=== PATIENT | female | born 1985 | race Caucasian/White ===

== ENCOUNTER 2020-04-01 07:37 | Outpatient (CLI) | payer OTHER ==
--- NOTE | 2020-04-01 08:34 | CT ---
CT ABDOMEN AND PELVIS WITH AND WITHOUT IV CONTRAST 04/01/2020 CLINICAL INFORMATION: Urinary tract infection. History of HPV. COMPARISON: None. Technique: Multiple contiguous axial CT images are obtained through the abdomen and pelvis with IV contrast. Cor onal reformatted images are provided. FINDINGS: Lower Chest: Lung bases are clear. Vessels: Abdominal aorta is normal in caliber. Abdomen: Portal vein:Patent Gallbladder: Within normal limits for CT imaging. Liver: within normal limits. Spleen: within normal limits. Pancreas: within normal limits. Adrenals: within normal limits. Kidneys: Normal in appearance bilaterally. No renal mass is visualized. No renal or ureteral calculi are seen bilaterally, and there is no evidence of hydronephrosis. Delayed images demonstrate no definitive filling defect within the renal collecting systems or visualized opacified ureters. Bowel: Normal caliber. Appendix: The appendix is visualized and normal in caliber. Peritoneum: Trace amount of free fluid in the pelvis probably physiologic. No fluid collection or lym phadenopathy seen in the abdomen or pelvis. Mesentery and Retroperitoneum: No enlarged mesenteric or retroperitoneal lymph nodes. Abdominal Wall: within normal limits. Pelvis: Reproductive Organs: No pelvic masses. Bladder: Partially distended and normal in appearance. Bones: within normal limits. IMPRESSION: 1. No acute findings are seen in the abdomen or pelvis. 2. No renal or ureteral calculi are seen bilaterally, and there is no hydronephrosis. No enhancing re nal mass is identified.
[2020-04-01] MEDS ORDERED: Iopamidol 370 76% 100 ML VIAL ONE (11:22)
== END 2020-04-01 07:38 | disposition home or self-care (01) ==
LOC: BICCT 07:37
PROVIDERS: ATTEND Obstetrics & Gynecology
DX: N39.0 Urinary tract infection, site not specified (principal)
CPT/HCPCS: 74178; Q9967